=== PATIENT | male | born 1945 | race Caucasian/White ===

== ENCOUNTER 2020-05-16 19:06 | Inpatient (IN) | payer MEDICARE, BC ==
[~2020-05-16 19:06] MED LIST: Iopamidol-370 76% 500 ML 1 ML ONE
[2020-05-16 20:11] LABS: #Lymphocytes 1.2 thou/uL (1.20-3.40); #Monocytes 1.1 thou/uL (0.11-0.59); #Neutrophils 9.6 thou/uL (1.40-6.50); %Basophils 0.4 % (0.0-1.0); %Eosinophils 0.4 % (0.0-10.0); %Lymphocytes 9.6 % (21.0-51.0); %Monocytes 9.2 % (0.0-10.0); %Neutrophils 80.4 % (42.0-75.0); Hemoglobin 12.3 g/dL (14.0-18.0); Mean Corpuscular HGB CONC 33.5 g/dL (32.0-36.0); Mean Corpuscular Hemoglobin 33.6 pg (27.0-31.0); Mean Platelet Volume 6.2 fL (7.4-10.4); Platelet Count 394 thou/uL (130-400); RBC Distribution Width 11.8 % (11.5-14.5); Red Blood Cell (RBC) Count 3.67 mill/uL (4.70-6.10); White Blood Cell (WBC) Count 11.9 thou/uL (4.8-10.8)
[2020-05-16 20:29] LABS: ALT (SGPT) 8 U/L (8-55); AST (SGOT) 13 U/L (5-34); Albumin 3.9 g/dL (3.4-4.8); Alkaline Phosphatase 42 U/L (40-110); Anion Gap 18 mmol/L (10-20); BUN (Urea Nitrogen) 17 mg/dL (8.4-25.7); Bilirubin, Total 0.4 mg/dL (0.2-1.2); Calc. Creatinine Clearance 0 mL/min (70-130); Calcium 8.6 mg/dL (7.8-10.44); Carbon Dioxide 19 mmol/L (23-31); Chloride 104 mmol/L (98-107); Globulin 3.3 g/dL (2.4-3.5); Glucose 112 mg/dL (83-110); Potassium 4.1 mmol/L (3.5-5.1); Protein, Total 7.2 g/dL (5.8-8.1); Sodium 137 mmol/L (136-145)
[2020-05-16] MEDS ORDERED: Azithromycin 500 MG VIAL ONE (21:11)
[2020-05-16] MEDS ORDERED: cefTRIAXone\\ROCEPHIN 1 GM VIAL ONE (21:11)
[2020-05-16 21:43] LABS: Bacteria/HPF None Seen HPF (None Seen); Bilirubin Negative (Negative); Blood, Urine Negative (Negative); Clarity Clear (Clear); Glucose, Urine (Dipstick) Normal (Negative); Ketone, Urine Negative (Negative); Leukocyte Negative Leu/uL (Negative); Nitrite Negative (Negative); Protein, Urine (Dipstick) 30 mg/dL (Neg-Trace); RBC/HPF 0-3 HPF (0-3); Specific Gravity, Urine 1.027 (1.002-1.036); Squamous Epithelial 0-3 HPF (0-3); Urobilinogen Normal mg/dL (Less than 2); WBC/HPF 0-3 HPF (0-3); pH, Urine 5.5 (5.0-9.0)
[2020-05-16] MEDS ORDERED: Ondansetron PF 4 MG/2 ML Vial IVP PRN (23:00)
[2020-05-16] MEDS ORDERED: Acetaminophen 325 MG TAB PO PRN (23:00)
[2020-05-16] MEDS ORDERED: Ondansetron ODT 4 MG TAB SL PRN (23:00)
[2020-05-17 01:52] VITALS: BMI 32.8
[2020-05-17 06:29] LABS: #Eosinphils 0.1 thou/uL (0.0-0.7); #Lymphocytes 1.5 thou/uL (1.20-3.40); #Monocytes 1.2 thou/uL (0.11-0.59); #Neutrophils 6.3 thou/uL (1.40-6.50); %Basophils 0.5 % (0.0-1.0); %Eosinophils 1.2 % (0.0-10.0); %Lymphocytes 16.2 % (21.0-51.0); %Monocytes 12.6 % (0.0-10.0); %Neutrophils 69.4 % (42.0-75.0); Hemoglobin 11.6 g/dL (14.0-18.0); Mean Corpuscular HGB CONC 32.9 g/dL (32.0-36.0); Mean Platelet Volume 5.8 fL (7.4-10.4); Platelet Count 375 thou/uL (130-400); RBC Distribution Width 11.7 % (11.5-14.5); Red Blood Cell (RBC) Count 3.53 mill/uL (4.70-6.10); White Blood Cell (WBC) Count 9.1 thou/uL (4.8-10.8)
[2020-05-17 06:46] LABS: Anion Gap 14 mmol/L (10-20); BUN (Urea Nitrogen) 15 mg/dL (8.4-25.7); Calc. Creatinine Clearance 84 mL/min (70-130); Calcium 8.3 mg/dL (7.8-10.44); Carbon Dioxide 21 mmol/L (23-31); Chloride 105 mmol/L (98-107); Glucose 106 mg/dL (83-110); Sodium 136 mmol/L (136-145)
[2020-05-17] MEDS: Cefepime 1 GM in Sodium Chloride 0.9% 100 ML IVPB SCH ×2 (09:26→23:00)
[2020-05-17] MEDS: Enoxaparin Sodium 40 MG/0.4 ML SYRINGE SC SCH (09:27)
[2020-05-17 09:32] LABS: SARS-CoV-2 PCR by NAA Not Detected (NotDetected)
[2020-05-17] MEDS ORDERED: HumaLOG 300 UNITS/3 ML VIAL SC PRN (13:16)
[2020-05-17] MEDS ORDERED: Dextrose 5% in Water 1,000 ML IV PRN (13:16)
[2020-05-17] MEDS ORDERED: Dextrose 50% Abboject 50 ML SYRINGE SLOW IVP PRN (13:16)
[2020-05-17] MEDS ORDERED: FLU VACC QS2020-21(65YR UP)/PF 240 MCG/0.7 ML SYRINGE IM ONE (21:00)
[2020-05-17] MEDS ORDERED: Simvastatin 10 MG TAB PO SCH (21:00)
[2020-05-17] MEDS: Aggrenox 200-25mg CAP PO SCH (23:03)
[2020-05-18 07:34] VITALS: TEMP 97.9
[2020-05-18] MEDS: Cefepime 1 GM in Sodium Chloride 0.9% 100 ML IVPB SCH (08:28)
[2020-05-18] MEDS: Enoxaparin Sodium 40 MG/0.4 ML SYRINGE SC SCH (08:29)
[2020-05-18] MEDS: Aggrenox 200-25mg CAP PO SCH (08:30)
[2020-05-18] MEDS ORDERED: Amlodipine 10 MG TAB PO SCH (09:00)
[2020-05-18] MEDS ORDERED: glipiZIDE 10 MG TAB PO SCH (09:00)
[2020-05-18 11:37] VITALS: BP 153/74
== END 2020-05-18 12:51 | disposition home or self-care (01) | DRG 871 ==
LOC: ERS 19:06 → T4-A 21:43
PROVIDERS: ADMIT Student in an Organized Health Care Education/Training Program; ATTEND Internal Medicine
DX: A41.9 Sepsis, unspecified organism (principal); J18.9 Pneumonia, unspecified organism; J96.01 Acute respiratory failure with hypoxia; E78.00 Pure hypercholesterolemia, unspecified; E11.9 Type 2 diabetes mellitus without complications; E78.5 Hyperlipidemia, unspecified; I10 Essential (primary) hypertension; F03.90 Unspecified dementia, unspecified severity, without behavioral disturbance, psychotic disturbance, mood disturbance, and anxiety; J84.10 Pulmonary fibrosis, unspecified; E66.9 Obesity, unspecified; I69.354 Hemiplegia and hemiparesis following cerebral infarction affecting left non-dominant side; Z88.5 Allergy status to narcotic agent; Z79.84 Long term (current) use of oral hypoglycemic drugs; Z79.82 Long term (current) use of aspirin; Z79.899 Other long term (current) drug therapy; B94.8 Sequelae of other specified infectious and parasitic diseases; Z68.32 Body mass index [BMI] 32.0-32.9, adult; Z87.891 Personal history of nicotine dependence
CPT/HCPCS: 36415; 36416; 71275; 80048; 83605; 83735; 85025; 87086; 87635; 87804; 94640; 96365; 96375; J0456; J0692; J0696; J1650; J1815; J3490; J7620; Q9967; U0003; U0005

== ENCOUNTER 2021-02-18 12:15 | Inpatient (IN) | payer MEDICARE, BC ==
[2021-02-20 10:41] VITALS: BMI 33.0
[2021-02-21] MEDS ORDERED: cefOXitin Sodium/Dextrose 2 GM/50 ML BAG ONE (08:40)
[2021-02-21] MEDS ORDERED: ceFOXitin 1 GM VIAL ONE ×2 (08:40→11:26)
[2021-02-21] MEDS ORDERED: Fentanyl 100 MCG/2 ML VIAL ONE ×2 (08:57→09:21)
[2021-02-21] MEDS ORDERED: Bupivacaine HCl 0.5%/Epinephrine 1:200,000/PF 30 ml Vial ONE (09:15)
[2021-02-21] MEDS ORDERED: SUGAMMADEX SODIUM 200 MG/2 ML VIAL ONE (09:21)
[2021-02-21] MEDS ORDERED: Ketamine 50 MG/ML (10ML VIAL) ONE (09:21)
[2021-02-21] MEDS ORDERED: Albumin 5% 500 ML ONE (09:21)
[2021-02-21] MEDS ORDERED: Dexamethasone 20 MG/5 ML VIAL ONE (09:50)
[2021-02-21] MEDS ORDERED: ePHEDrine 50 MG/ML VIAL ONE (09:50)
[2021-02-21] MEDS ORDERED: Lidocaine 1% PF 5 ML VIAL ONE (09:50)
[2021-02-21] MEDS ORDERED: Ondansetron PF 4 MG/2 ML Vial ONE (09:50)
[2021-02-21] MEDS ORDERED: PROPOFOL 200 MG/20 ML VIAL ONE (09:50)
[2021-02-21] MEDS ORDERED: Rocuronium Bromide 10 MG/ML (10ML VIAL) ONE (09:50)
[2021-02-21] MEDS ORDERED: Ondansetron HCl/PF 4 MG/2 ML Vial IVP PRN (11:52)
[2021-02-21] MEDS ORDERED: Promethazine HCl 25 MG/ML VIAL IVPB PRN (11:52)
[2021-02-21] MEDS ORDERED: Promethazine HCl 25 MG/ML VIAL IM PRN ×2 (11:52→12:33)
[2021-02-21] MEDS ORDERED: Insulin Regular 300 UNITS/3 ML VIAL SC PRN (12:33)
[2021-02-21] MEDS ORDERED: hydrALAZINE 20 MG/ML VIAL SLOW IVP PRN (12:33)
[2021-02-21] MEDS ORDERED: Ondansetron PF 4 MG/2 ML Vial IVP PRN (12:33)
[2021-02-21] MEDS ORDERED: Acetaminophen 500 MG TAB PO PRN (12:33)
[2021-02-21] MEDS ORDERED: Fentanyl 100 MCG/2 ML VIAL SLOW IVP PRN (12:33)
[2021-02-21] MEDS ORDERED: FLU VACC QS2021-22(65YR UP)/PF 240 MCG/0.7 ML SYRINGE IM ONE (17:00)
[2021-02-21] MEDS: Sodium Chloride 0.9% 1,000 ML IV SCH (17:41)
[2021-02-21] MEDS: Famotidine 20 MG TAB PO SCH (20:15)
[2021-02-21] MEDS: Enoxaparin Sodium 40 MG/0.4 ML SYRINGE SC SCH (20:15)
[2021-02-21] MEDS: cefOXitin 2 GM in Sodium Chloride 0.9% 100 ML IVPB SCH (20:16)
[2021-02-21] MEDS: traMADol HCl 50 MG TAB PO PRN (20:23)
[2021-02-21] MEDS: Famotidine/PF 20 mg/2ml Vial SLOW IVP SCH (21:11)
[2021-02-22] MEDS: Sodium Chloride 0.9% 1,000 ML IV SCH ×2 (03:07→18:32)
[2021-02-22] MEDS: cefOXitin 2 GM in Sodium Chloride 0.9% 100 ML IVPB SCH (04:38)
[2021-02-22 07:17] LABS: #Basophils 0.1 thou/uL (0.0-0.2); #Lymphocytes 1.7 thou/uL (1.20-3.40); #Neutrophils 10.7 thou/uL (1.40-6.50); %Basophils 0.6 % (0.0-1.0); %Eosinophils 0.2 % (0.0-10.0); %Lymphocytes 12.4 % (21.0-51.0); %Monocytes 7.5 % (0.0-10.0); %Neutrophils 79.3 % (42.0-75.0); Hemoglobin 10.7 g/dL (14.0-18.0); Mean Corpuscular HGB CONC 32.5 g/dL (32.0-36.0); Mean Platelet Volume 5.6 fL (7.4-10.4); Platelet Count 383 thou/uL (130-400); RBC Distribution Width 12.5 % (11.5-14.5); Red Blood Cell (RBC) Count 3.25 mill/uL (4.70-6.10); White Blood Cell (WBC) Count 13.5 thou/uL (4.8-10.8)
[2021-02-22 07:32] LABS: Anion Gap 12 mmol/L (10-20); BUN (Urea Nitrogen) 14 mg/dL (8.4-25.7); Calc. Creatinine Clearance 77 mL/min (70-130); Calcium 8.2 mg/dL (7.8-10.44); Carbon Dioxide 24 mmol/L (23-31); Chloride 105 mmol/L (98-107); Glucose 131 mg/dL (83-110); Potassium 4.1 mmol/L (3.5-5.1); Sodium 137 mmol/L (136-145)
[2021-02-22] MEDS: Amlodipine 10 MG TAB PO SCH (08:59)
[2021-02-22] MEDS: traMADol HCl 50 MG TAB PO PRN ×2 (08:59→18:31)
[2021-02-22] MEDS: Famotidine 20 MG TAB PO SCH ×2 (08:59→20:56)
[2021-02-22] MEDS: Famotidine/PF 20 mg/2ml Vial SLOW IVP SCH ×2 (09:00→21:04)
[2021-02-22] MEDS: Enoxaparin Sodium 40 MG/0.4 ML SYRINGE SC SCH (20:56)
[2021-02-23] MEDS: traMADol HCl 50 MG TAB PO PRN (03:48)
[2021-02-23] MEDS: Sodium Chloride 0.9% 1,000 ML IV SCH (03:49)
[2021-02-23 05:38] LABS: #Eosinphils 0.1 thou/uL (0.0-0.7); #Lymphocytes 1.5 thou/uL (1.20-3.40); #Neutrophils 9.9 thou/uL (1.40-6.50); %Basophils 0.1 % (0.0-1.0); %Eosinophils 0.8 % (0.0-10.0); %Monocytes 8.1 % (0.0-10.0); Mean Corpuscular HGB CONC 33.5 g/dL (32.0-36.0); Mean Corpuscular Hemoglobin 33.9 pg (27.0-31.0); Platelet Count 407 thou/uL (130-400); RBC Distribution Width 12.5 % (11.5-14.5); Red Blood Cell (RBC) Count 3.25 mill/uL (4.70-6.10); White Blood Cell (WBC) Count 12.5 thou/uL (4.8-10.8)
[2021-02-23 06:01] LABS: Anion Gap 12 mmol/L (10-20); BUN (Urea Nitrogen) 11 mg/dL (8.4-25.7); Calc. Creatinine Clearance 90 mL/min (70-130); Calcium 8.6 mg/dL (7.8-10.44); Carbon Dioxide 25 mmol/L (23-31); Chloride 102 mmol/L (98-107); Glucose 121 mg/dL (83-110); Potassium 4.1 mmol/L (3.5-5.1); Sodium 135 mmol/L (136-145)
[2021-02-23 08:00] VITALS: BP 175/82; TEMP 98.1
[2021-02-23] MEDS: Amlodipine 10 MG TAB PO SCH (09:11)
[2021-02-23] MEDS: Famotidine 20 MG TAB PO SCH (09:11)
== END 2021-02-23 10:40 | disposition home or self-care (01) | DRG 331 ==
LOC: SURG A 02-21 07:26
PROVIDERS: ADMIT Surgery; ATTEND Surgery
PROC: 0DBN4ZZ Excision of Sigmoid Colon, Percutaneous Endoscopic Approach (ICD-10-PCS; principal; 2021-02-21)
DX: C18.7 Malignant neoplasm of sigmoid colon (principal); Z20.822 Contact with and (suspected) exposure to COVID-19; I10 Essential (primary) hypertension; G47.30 Sleep apnea, unspecified; M19.90 Unspecified osteoarthritis, unspecified site; E66.9 Obesity, unspecified; E11.9 Type 2 diabetes mellitus without complications; Z88.5 Allergy status to narcotic agent; Z87.891 Personal history of nicotine dependence; Z68.33 Body mass index [BMI] 33.0-33.9, adult; Z01.818 Encounter for other preprocedural examination
CPT/HCPCS: 36415; 36416; 80048; 83036; 85025; 88309; 93005; 93010; A4649; J0694; J1100; J1650; J2405; J2704; J3010; J3490; J7050; P9045; U0003; U0005

== ENCOUNTER 2021-02-18 15:10 | Outpatient (CLI) | payer MEDICARE, BC ==
[2021-02-18 16:42] LABS: #Basophils 0.1 10x3/uL (0.0-0.2); #Eosinphils 0.1 10x3/uL (0.0-0.5); #Monocytes 0.7 10x3/uL (0.0-1.1); #Neutrophils 3.8 10x3/uL (1.5-8.4); %Eosinophils 1.7 % (0.0-6.0); %Lymphocytes 20.6 % (18.0-47.0); %Monocytes 11.7 % (0.0-10.0); %Neutrophils 64.3 % (40.0-75.0); Hemoglobin 10.8 g/dL (13.5-17.5); Mean Corpuscular HGB CONC 31.7 g/dL (32.0-36.0); Mean Corpuscular Hemoglobin 30.9 pg (27.0-33.0); Mean Corpuscular Volume 97.4 fl (81.2-95.1); Mean Platelet Volume 8.8 fl (7.4-10.4); Platelet Count 351 10x3/uL (150-450); RBC Distribution Width 13.2 % (11.5-14.5)
[2021-02-18 16:44] LABS: Anion Gap 13 mmol/L (10-20); BUN (Urea Nitrogen) 11 mg/dL (8.4-25.7); Calc. Creatinine Clearance 0 mL/min (70-130); Calcium 8.7 mg/dL (7.8-10.44); Carbon Dioxide 25 mmol/L (23-31); Chloride 108 mmol/L (98-107); Glucose 202 mg/dL (83-110); Potassium 4.2 mmol/L (3.5-5.1); Sodium 142 mmol/L (136-145)
[2021-02-18 21:09] LABS: Hemoglobin A1c 6.5 % (4.0-6.0)
[2021-02-19 11:25] LABS: SARS-CoV-2 PCR by NAA Not Detected (NotDetected)
== END 2021-02-18 15:11 | disposition home or self-care (01) ==
LOC: LABBT 15:10
PROVIDERS: ATTEND Surgery
DX: Z01.818 Encounter for other preprocedural examination (principal); C18.7 Malignant neoplasm of sigmoid colon; Z20.822 Contact with and (suspected) exposure to COVID-19
CPT/HCPCS: 80048; 83036; 85025; 93005; U0003; U0005; 93010